=== PATIENT | male | born 1945 | race Caucasian/White ===

== ENCOUNTER 2021-10-02 10:35 | Inpatient (IN) | payer MEDICARE, OTHER ==
[~2021-10-02] VITALS: Ht 175.3 cm; Wt 56.2 kg
--- NOTE | 2021-10-02 10:52 | NUR ---
TO ER BED 4. BIB [facility] SEND BY PMD FOR POOR PO INTAKE WEIGHT LOSS AND WEAKNESS KATHY. PT CHANGED INTO GOWN. CONNECTED TO MONITOR. AWAITING MD CHAVEZ
[2021-10-02] MEDS ORDERED: ONDANSETRON HCL/PF 4 MG/2 ML VIAL IVP ONE (11:00)
[2021-10-02] MEDS ORDERED: IV NS 0.9% 1,000 ML BAG IV ONE (11:00)
--- NOTE | 2021-10-02 11:01 | NUR ---
XRAY AT BEDSIDE
[2021-10-02] MEDS ORDERED: ONDANSETRON HCL/PF 4 MG/2 ML VIAL ONE (11:27)
[2021-10-02 11:36] LABS: BASOPHILS % (AUTO) 0.2 % (0.0-2.0); EOSINOPHILS % (AUTO) 4.8 % (0.0-6.0); HEMATOCRIT 34 % (39-51); HEMOGLOBIN 11.4 g/dL (13.5-17.5); LYMPHOCYTES # (AUTO) 1.5 K/uL (0.8-4.8); LYMPHOCYTES % (AUTO) 25.3 % (20.0-44.0); MEAN CORPUSCULAR HGB CONC 33 g/dl (31.0-36.0); MEAN CORPUSCULAR VOLUME 95 fL (80-96); MONOCYTES # (AUTO) 0.5 K/uL (0.1-1.30); NEUTROPHILS # (AUTO) 3.7 K/uL (1.8-8.9); NEUTROPHILS % (AUTO) 60.7 % (43.0-81.0); PLATELET COUNT (AUTO) 106 K/uL (150-450); RED BLOOD CELL COUNT(AUTO) 3.59 MIL/uL (4.5-6.0)
--- NOTE | 2021-10-02 11:50 | NUR ---
MOVE SHEET SUBMITTED AND CALLED FOR MS BED.
--- NOTE | 2021-10-02 12:00 | NUR ---
COVID ANTIGEN SWAB COLLECTED AND SENT TO LAB
--- NOTE | 2021-10-02 12:45 | NUR ---
PT AMBULATED TO BATHROOM. STEADY GAIT NOTED
--- NOTE | 2021-10-02 13:16 | NUR ---
EPIC PAGED. AWAITING HOSPITALIST CALL BACK
[2021-10-02] MEDS ORDERED: CARB-37 PO (13:32)
[2021-10-02] MEDS ORDERED: CLOP75TA15 PO (13:32)
[2021-10-02] MEDS ORDERED: DONE5TAB34 PO (13:32)
[2021-10-02] MEDS ORDERED: CINA30TA2 PO (13:32)
[2021-10-02] MEDS ORDERED: MULT-439 PO (13:32)
[2021-10-02] MEDS ORDERED: SEVE800T28 PO (13:32)
[2021-10-02] MEDS ORDERED: ATOR20TA PO (13:32)
[2021-10-02] MEDS ORDERED: ASPI-1169 PO (13:32)
[2021-10-02] MEDS ORDERED: FAMO20TA8 PO (13:32)
[2021-10-02] MEDS ORDERED: LEVO112T5 PO (13:32)
[2021-10-02] MEDS ORDERED: ESCI10TA PO (13:32)
[2021-10-02] MEDS ORDERED: VENL75TA4 PO (13:32)
[2021-10-02] MEDS ORDERED: TAMS-12 PO (13:32)
[2021-10-02] MEDS ORDERED: CHOL500052 PO (13:32)
[2021-10-02] MEDS ORDERED: OMEP20TA5 PO (13:36)
[2021-10-02] MEDS ORDERED: EZET10TA15 PO (13:36)
[2021-10-02 14:21] LABS: ALANINE AMINOTRANSFERASE 22 U/L (12-78); ALBUMIN 3.7 g/dL (3.4-5.0); ALKALINE PHOSPHATASE 279 U/L (46-116); ASPARTATE AMINOTRANSFERASE 30 U/L (15-37); BILIRUBIN,DIRECT 0.1 mg/dL (0.0-0.2); BILIRUBIN,TOTAL 0.4 mg/dL (0.2-1.0); CALCIUM, SERUM 9.5 mg/dL (8.5-10.1); CARBON DIOXIDE 24 mmol/L (21-32); CHLORIDE 104 mmol/L (98-107); CREATININE 4.7 mg/dL (0.6-1.3); GLUCOSE 106 mg/dL (74-106); LIPASE 1014 U/L (73-393); SODIUM SERUM 142 mmol/L (136-145); TOTAL PROTEIN, SERUM 6.7 g/dL (6.4-8.2); UREA NITROGEN, BLOOD 63 mg/dL (7-18)
--- NOTE | 2021-10-02 14:39 | NUR ---
BED GIVEN 326-2
[2021-10-02] MEDS ORDERED: ACETAMINOPHEN 325 MG TABLET PO PRN (15:00)
[2021-10-02] MEDS ORDERED: ONDANSETRON HCL/PF 4 MG/2 ML VIAL IVP PRN (15:00)
[2021-10-02] MEDS ORDERED: Z GUARD REMEDY 4 OZ OINT TP PRN (15:00)
--- NOTE | 2021-10-02 15:05 | NUR ---
REPORT GIVEN TO RAMYA YARBROUGH ROOM 326
--- NOTE | 2021-10-02 15:10 | NUR ---
TRIAL JUDGE NOTE RECEIVED PATIENT FROM ER. PT WITH STABLE VITALS. A/O X 3 WITH CONFUSION AND FORGETFULNESS. NO SOB. BREATHING IS EVEN AND UNLABORED. NO ACUTE DISTRESS NOTED. NO C/O PAIN. IV ACCESS FRA#22 PATENT AND INTACT. ORIENTED PT TO UNIT, STAFF AND CALL LIGHT. SAFETY MEASURES IN PLACE WITH BED LOCKED AND LOW WITH SIDE RAILS X2. WILL CONTINUE MONITOR PT THROUGHOUT SHIFT.
[2021-10-02] MEDS: SEVELAMER CARBONATE 800 MG TABLET PO SCH (17:53)
--- NOTE | 2021-10-02 19:10 | NUR ---
RN opening notes Pt is watching TV comfortably. Pt is alert and orientedX2-3. On room air. No SOB. No S/s of distress noted. IV site at R wrist # 22 is clean, intact, flushes well and SL. Safety precautions is maintained. Bed at low position, brakes locked, side railsX3, hob elevated, bed alarm is on and call light is within reach. Will continue to monitor.
--- NOTE | 2021-10-02 19:33 | NUR ---
MS CLOSING NOTES PT RESTING IN BED. A/O X 3 WITH CONFUSION AND FORGETFULNESS. ALL NEEDS MET THROUGHOUT SHIFT. NO SIGNIFICANT CHANGES DURING SHFIT. NO SOB. BREATHING IS EVEN AND UNLABORED. NO ACUTE DISTRESS NOTED. NO C/O PAIN. IV ACCESS FRA#22 PATENT AND INTACT. ORIENTED PT TO UNIT, STAFF AND CALL LIGHT. SAFETY MEASURES IN PLACE WITH BED LOCKED AND LOW WITH SIDE RAILS X2. WILL ENDORSE CONTINUITY OF CARE TO ONCOMING SHIFT.
[2021-10-02 20:00] VITALS: BP 141/67
[2021-10-02] MEDS: CINACALCET HCL 30 MG TABLET PO SCH (21:26)
[2021-10-02] MEDS: DONEPEZIL 5 MG TABLET PO SCH (21:27)
[2021-10-02] MEDS: TAMSULOSIN 0.4 MG CAP.SR.24H PO SCH (21:27)
[2021-10-02] MEDS: HEPARIN SODIUM, PORCINE 5000 UNITS/1 ML VIAL SQ SCH (21:33)
--- NOTE | 2021-10-03 05:30 | NUR ---
RN notes Pt signed consent for HD.
--- NOTE | 2021-10-03 06:31 | NUR ---
RN closing notes Pt is resting in bed comfortably. Pt is alert and orientedX2-3. On room air. No SOB. No S/s of distress noted. VS is stable. IV site at R wrist # 22 is clean, intact, flushes well and SL. PELON fistula is intact and patent. routine meds were given as ordered. snacks is given and provided. Kept Pt clean, dry and comfortable. Safety precautions is maintained. Bed at low position, brakes locked, side railsX2, hob elevated, urinal at the bedside, bed alarm is on and call light is within reach. Will endorse to am nurse for LIN. Addendum: 10/03/21 at 0644 by MARIA ESTHER ADHIKARI RN PELON fistula thrill and bruit.
[2021-10-03 07:07] LABS: BASOPHILS % (AUTO) 0.3 % (0.0-2.0); HEMATOCRIT 30 % (39-51); LYMPHOCYTES # (AUTO) 1.8 K/uL (0.8-4.8); LYMPHOCYTES % (AUTO) 40.2 % (20.0-44.0); MEAN CORPUSCULAR HGB CONC 34 g/dl (31.0-36.0); MEAN CORPUSCULAR VOLUME 95 fL (80-96); MONOCYTES # (AUTO) 0.4 K/uL (0.1-1.30); MONOCYTES % (AUTO) 8.6 % (2.0-12.0); NEUTROPHILS # (AUTO) 1.9 K/uL (1.8-8.9); NEUTROPHILS % (AUTO) 42.9 % (43.0-81.0); PLATELET COUNT (AUTO) 97 K/uL (150-450); WHITE BLOOD COUNT (AUTO) 4.5 K/uL (4.3-11.0)
--- NOTE | 2021-10-03 07:30 | NUR ---
MS OPENING NOTES PT IS RESTING IN BED. A/O X3 FORGETFUL AT TIMES. BREATHING IS EVEN AND UNLABORED WITH NO S/SX OF RESPIRATORY DISTRESS NOTED. NO PAIN VERBALIZED AT THIS TIME. IV ACCESS R FA #22 PATENT AND INTACT. SAFETY MEASURES IN PLACE WITH BED LOCKED AND IN LOWEST POSITION WITH SIDE RAILS X2, CALL LIGHT WITHIN REACH. WILL CONTINUE TO MONITOR PATIENT
[2021-10-03 07:41] LABS: ALANINE AMINOTRANSFERASE 25 U/L (12-78); ALBUMIN 3.1 g/dL (3.4-5.0); ALKALINE PHOSPHATASE 241 U/L (46-116); ASPARTATE AMINOTRANSFERASE 20 U/L (15-37); BILIRUBIN,TOTAL 0.3 mg/dL (0.2-1.0); CALCIUM, SERUM 9.1 mg/dL (8.5-10.1); CARBON DIOXIDE 23 mmol/L (21-32); CHLORIDE 106 mmol/L (98-107); CREATININE 4.9 mg/dL (0.6-1.3); GLUCOSE 132 mg/dL (74-106); LIPASE 1293 U/L (73-393); MAGNESIUM 2.2 mg/dL (1.8-2.4); PHOSPHORUS 3.4 mg/dL (2.5-4.9); POTASSIUM 4.7 mmol/L (3.5-5.1); SODIUM SERUM 140 mmol/L (136-145); TOTAL PROTEIN, SERUM 5.6 g/dL (6.4-8.2); UREA NITROGEN, BLOOD 64 mg/dL (7-18)
[2021-10-03] MEDS: SEVELAMER CARBONATE 800 MG TABLET PO SCH ×3 (08:25→17:41)
[2021-10-03] MEDS: ASPIRIN 81 MG TAB.CHEW PO SCH (08:25)
[2021-10-03] MEDS: CARBIDOPA/LEVODOPA 25/250 MG 1 UDTAB PO SCH (08:25)
[2021-10-03] MEDS: VENLAFAXINE XR 150 MG CAP.SR.24H PO SCH (08:25)
[2021-10-03] MEDS: LEVOTHYROXINE SODIUM 137 MCG TABLET PO SCH (08:25)
[2021-10-03] MEDS: ESCITALOPRAM OXALATE (10 MG) 10 MG TABLET PO SCH (08:25)
[2021-10-03] MEDS: CLOPIDOGREL BISULFATE 75 MG TABLET PO SCH (08:25)
[2021-10-03] MEDS: EZETIMIBE 10 MG TABLET PO SCH (08:25)
[2021-10-03] MEDS: FAMOTIDINE (20 MG) 20 MG TABLET PO SCH (08:25)
[2021-10-03] MEDS: HEPARIN SODIUM, PORCINE 5000 UNITS/1 ML VIAL SQ SCH ×2 (08:29→21:32)
[2021-10-03 08:48] VITALS: BP 136/77
[2021-10-03 09:03] LABS: CHOLESTEROL 120 mg/dL (<200); HDL CHOLESTEROL 67 mg/dL (40-60); LDL 39 mg/dL (0-99); TRIGLYCERIDES 63 mg/dL (30-150)
[2021-10-03] MEDS ORDERED: NEPRO VAN 237 ML CAN PO PRN (10:00)
--- NOTE | 2021-10-03 12:30 | NUR ---
RN NOTES PATIENT HAD HD TODAY. TOLERATED WELL WITH NO ACUTE CHANGES. 1.5L OF FLUIDS REMOVED.
[2021-10-03 16:02] VITALS: BP 143/76
--- NOTE | 2021-10-03 18:59 | NUR ---
MS CLOSING NOTES PT IS RESTING IN BED. A/O X3 FORGETFUL AT TIMES. NO S/SX OF RESPIRATORY DISTRESS NOTED. NO PAIN VERBALIZED AT THIS TIME. IV ACCESS R FA #22 PATENT AND INTACT. HD WAS DONE TODAY WITH 1.5L REMOVED. NO COMPLICATIONS NOTED DURING DIALYSIS. PATIENT NEEDS ENCOURAGEMENT DURING MEALS AND IS PRETTY COOPERATIVE. ALL ORDERS CARRIED OUT AND NEEDS MET. SAFETY MEASURES IN PLACE WITH BED LOCKED AND IN LOWEST POSITION WITH SIDE RAILS X2, CALL LIGHT WITHIN REACH. WILL ENDORSE TO THE WINDOW INSTALLATION SUBCONTRACTOR NURSE FOR LIN
--- NOTE | 2021-10-03 19:25 | NUR ---
MS RN OPENING NOTES: RECEIVED REPORT AT PATIENT'S BEDSIDE. PATIENT IS ALERT AND ORIENTED X 3-4. FORGETFUL AT TIMES, EASY TO REORIENT. WATCHING TV. NAD AND STABLE AT THIS TIME. DENIES PAIN. AV SHUNT TO PELON -- POSITIVE THRILL AND BRUIT. IV ACCESS R FA #22 SL, FLUSHED, PATENT AND INTACT. NO INFILTRATION OR LEAKING OBSERVED. DRESSING CDI. DISCUSSED PLAN OF CARE WITH PATIENT TO INCREASE NUTRITIONAL INTAKE. PATIENT VERBALIZES UNDERSTANDING AND REPEATS BACK IMPORTANCE OF ADEQUATE NUTRITIONAL INTAKE FOR ORGAN FUNCTION AND OVERALL HEALTH. SAFETY MEASURES MAINTAINED -- BED IN LOW/LOCKED POSITION. SIDE RAILS UP X2. HOB IN SEMI-BROWN'S POSITION. PATIENT DEMONSTRATES ABILITY TO USE CALL LIGHT AND VERBALIZE NEEDS EFFECTIVELY. CALL LIGHT AND FREQUENTLY USED ITEMS WITHIN REACH.
[2021-10-03 20:00] VITALS: BP 154/76
[2021-10-03] MEDS: CINACALCET HCL 30 MG TABLET PO SCH (21:30)
[2021-10-03] MEDS: DONEPEZIL 5 MG TABLET PO SCH (21:30)
[2021-10-03] MEDS: TAMSULOSIN 0.4 MG CAP.SR.24H PO SCH (21:30)
[2021-10-04 04:00] VITALS: BP 150/70
--- NOTE | 2021-10-04 06:27 | NUR ---
PLANT UTILITIES ENGINEER NOTES: PATIENT LYING IN BED EYES CLOSED, RR EVEN AND UNLABORED. NAD AND STABLE. EASILY AROUSED BY VOICE COMMAND. ALERT AND ORIENTED TO BASELINE. FORGETFUL AT TIMES, EASY TO REORIENT. DENIES PAIN. AV SHUNT TO PELON -- POSITIVE THRILL AND BRUIT. IV ACCESS R FA #22 SL, FLUSHED, PATENT AND INTACT. NO INFILTRATION OR LEAKING OBSERVED. DRESSING CDI. DISCUSSED PLAN OF CARE WITH PATIENT TO INCREASE NUTRITIONAL INTAKE. PATIENT VERBALIZES UNDERSTANDING AND REPEATS BACK IMPORTANCE OF ADEQUATE NUTRITIONAL INTAKE FOR ORGAN FUNCTION AND OVERALL HEALTH. SAFETY AND ASPIRATION PRECAUTIONS MAINTAINED THROUGHOUT THE SHIFT. HOB ELEVATED TO SEMI-BROWN'S POSITION. BED LOW/LOCKED. SIDE RAILS UP X2. PATIENT DEMONSTRATES ABILITY TO USE CALL LIGHT AND VERBALIZE NEEDS EFFECTIVELY. CALL LIGHT AND FREQUENTLY USED ITEMS WITHIN REACH.
[2021-10-04] MEDS: LEVOTHYROXINE SODIUM 137 MCG TABLET PO SCH (06:32)
[2021-10-04 06:38] LABS: BASOPHILS % (AUTO) 0.4 % (0.0-2.0); EOSINOPHILS % (AUTO) 7.1 % (0.0-6.0); HEMATOCRIT 31 % (39-51); HEMOGLOBIN 10.5 g/dL (13.5-17.5); LYMPHOCYTES # (AUTO) 2.1 K/uL (0.8-4.8); LYMPHOCYTES % (AUTO) 41.4 % (20.0-44.0); MEAN CORPUSCULAR HGB CONC 34 g/dl (31.0-36.0); MEAN CORPUSCULAR VOLUME 95 fL (80-96); MONOCYTES # (AUTO) 0.6 K/uL (0.1-1.30); NEUTROPHILS # (AUTO) 2.1 K/uL (1.8-8.9); NEUTROPHILS % (AUTO) 40.1 % (43.0-81.0); PLATELET COUNT (AUTO) 106 K/uL (150-450); RED BLOOD CELL COUNT(AUTO) 3.31 MIL/uL (4.5-6.0); WHITE BLOOD COUNT (AUTO) 5.2 K/uL (4.3-11.0)
[2021-10-04 07:00] LABS: CALCIUM, SERUM 9.7 mg/dL (8.5-10.1); CARBON DIOXIDE 29 mmol/L (21-32); CHLORIDE 103 mmol/L (98-107); CREATININE 3.6 mg/dL (0.6-1.3); GLUCOSE 79 mg/dL (74-106); LIPASE 129 U/L (73-393); MAGNESIUM 2.3 mg/dL (1.8-2.4); PHOSPHORUS 3.3 mg/dL (2.5-4.9); POTASSIUM 4.4 mmol/L (3.5-5.1); SODIUM SERUM 138 mmol/L (136-145); UREA NITROGEN, BLOOD 36 mg/dL (7-18)
--- NOTE | 2021-10-04 07:30 | NUR ---
HOSPITAL SUPERVISOR OPENING NOTES PATIENT LYING IN BED EYES CLOSED, ABLE TO BE WAKEN. EVEN CHEST EXPANSION DURING INSPIRATION AND EXPIRATION WITH NO S/SX OF RESPIRATORY DISTRESS. A/O X3, FORGETFUL AT TIMES. DENIES PAIN AT THIS TIME. AV SHUNT TO PELON, POSITIVE THRILL AND BRUIT NOTED. IV ACCESS R FA #22 SL, FLUSHED, PATENT AND INTACT. WILL CONTINUE ENCOURAGING NUTRITION SUPPLEMENTATION FOR OVERALL HEALTH. SAFETY AND ASPIRATION PRECAUTIONS IN PLACE. HOB ELEVATED TO SEMI-BROWN'S POSITION. BED LOW/LOCKED, SIDE RAILS UP X2, CALL LIGHT WITHIN REACH. PATIENT DEMONSTRATES ABILITY TO USE CALL LIGHT AND VERBALIZE NEEDS EFFECTIVELY. WILL CONTINUE PLAN OF CARE
[2021-10-04 08:00] VITALS: BP 151/74
[2021-10-04] MEDS: ASPIRIN 81 MG TAB.CHEW PO SCH (08:45)
[2021-10-04] MEDS: CARBIDOPA/LEVODOPA 25/250 MG 1 UDTAB PO SCH (08:45)
[2021-10-04] MEDS: SEVELAMER CARBONATE 800 MG TABLET PO SCH ×3 (08:45→18:21)
[2021-10-04] MEDS: VENLAFAXINE XR 150 MG CAP.SR.24H PO SCH (08:45)
[2021-10-04] MEDS: CLOPIDOGREL BISULFATE 75 MG TABLET PO SCH (08:45)
[2021-10-04] MEDS: ESCITALOPRAM OXALATE (10 MG) 10 MG TABLET PO SCH (08:45)
[2021-10-04] MEDS: FAMOTIDINE (20 MG) 20 MG TABLET PO SCH (08:45)
[2021-10-04] MEDS: EZETIMIBE 10 MG TABLET PO SCH (08:45)
[2021-10-04] MEDS: HEPARIN SODIUM, PORCINE 5000 UNITS/1 ML VIAL SQ SCH ×2 (08:47→21:15)
[2021-10-04 12:00] VITALS: BP 135/72
--- NOTE | 2021-10-04 12:30 | NUR ---
RN NOTES PATIENT IS ENCOURAGED TO DRINK NEPRO DRINKS WITH MEALS FOR SUPPLEMENTAL NUTRITION. PATIENT IS OKAY WITH DRINKING NEPRO BUT STATES, "IM TIRED OF DRINKING VANILLA FLAVORED NEPRO". PER PATIENT REQUEST HE WOULD LIKE EITHER CHOCOLATE OR STRAWBERRY FLAVOR. WILL ENDORSE ACCORDINGLY FOR PATIENTS NEED.
[2021-10-04] MEDS ORDERED: NEPRO VAN 237 ML CAN PO PRN (13:30)
[2021-10-04 16:00] VITALS: BP 137/72
--- NOTE | 2021-10-04 18:53 | NUR ---
WELDING MACHINE OPERATOR ELECTROSLAG CLOSING NOTES PATIENT IN BED, AWAKE, A/O X3 FORGETFUL AT TIMES. NO S/SX OF RESPIRATORY DISTRESS. DENIES PAIN AT THIS TIME. AV SHUNT TO PELON, POSITIVE THRILL AND BRUIT NOTED. IV ACCESS R FA #22 SL, FLUSHED, PATENT AND INTACT. TELE MONITOR READING SR 69 AT THIS TIME. PATIENT AVERAGED 50% INTAKE OF ALL MEALS TODAY. CONTINUING TO ENCOURAGE NUTRITIONAL INTAKE. SAFETY AND ASPIRATION PRECAUTIONS IN PLACE. HOB ELEVATED TO SEMI-BROWN'S POSITION. BED LOW/LOCKED, SIDE RAILS UP X2, CALL LIGHT WITHIN REACH. WILL ENDORSE TO GHOST WRITER NURSE FOR LIN
--- NOTE | 2021-10-04 19:43 | NUR ---
RN OPENING NOTES RECEIVED PT IN BED, AWAKE. AOx3, ABLE TO MAKE NEEDS KNOWN. ON RA AND TOLERATING WELL. NO SOB NOTED. NO S/SX OF RESPIRATORY DISTRESS NOTED. IV ACCESS IN L WRIST #22 AND PELON AV FISTULA. IV IS INTACT, PATENT, AND FLUSHING WELL. TELE MONITOR DETECTS SINUS RHYTHM WITH RATE OF 63. SAFETY PRECAUTIONS IN PLACE: BED IN LOWEST, LOCKED POSITION, SIDERAILS UPx2, AND BRAKES ON. TABLE AND CALL LIGHT WITHIN REACH. WILL CONTINUE TO MONITOR.
[2021-10-04 20:00] VITALS: BP 149/73
[2021-10-04] MEDS: DONEPEZIL 5 MG TABLET PO SCH (21:14)
[2021-10-04] MEDS: CINACALCET HCL 30 MG TABLET PO SCH (21:14)
[2021-10-04] MEDS: TAMSULOSIN 0.4 MG CAP.SR.24H PO SCH (21:14)
[2021-10-05] VITALS: BP 162/77
[2021-10-05 04:00] VITALS: BP 123/70
[2021-10-05 06:11] LABS: BASOPHILS % (AUTO) 0.4 % (0.0-2.0); EOSINOPHILS % (AUTO) 6.9 % (0.0-6.0); HEMATOCRIT 34 % (39-51); HEMOGLOBIN 11.2 g/dL (13.5-17.5); LYMPHOCYTES # (AUTO) 2.2 K/uL (0.8-4.8); LYMPHOCYTES % (AUTO) 45.9 % (20.0-44.0); MEAN CORPUSCULAR HGB CONC 33 g/dl (31.0-36.0); MEAN CORPUSCULAR VOLUME 95 fL (80-96); MONOCYTES # (AUTO) 0.5 K/uL (0.1-1.30); MONOCYTES % (AUTO) 10.6 % (2.0-12.0); NEUTROPHILS # (AUTO) 1.7 K/uL (1.8-8.9); NEUTROPHILS % (AUTO) 36.2 % (43.0-81.0); PLATELET COUNT (AUTO) 114 K/uL (150-450); RED BLOOD CELL COUNT(AUTO) 3.51 MIL/uL (4.5-6.0); WHITE BLOOD COUNT (AUTO) 4.8 K/uL (4.3-11.0)
--- NOTE | 2021-10-05 06:47 | NUR ---
RN CLOSING NOTES PT IN BED, ASLEEP, AWAKENS TO VERBAL STIMULI. AOx3, ABLE TO MAKE NEEDS KNOWN. ON RA AND TOLERATING WELL. NO SOB NOTED. NO S/SX OF RESPIRATORY DISTRESS NOTED. IV ACCESS IN L WRIST #22 AND PELON AV FISTULA. IV IS INTACT, PATENT, AND FLUSHING WELL. TELE MONITOR DETECTS SINUS RHYTHM WITH RATE OF 63. ALL NEEDS MET. PT KEPT CLEAN AND DRY. SAFETY PRECAUTIONS IN PLACE: BED IN LOWEST, LOCKED POSITION, SIDERAILS UPx2, AND BRAKES ON. TABLE AND CALL LIGHT WITHIN REACH. WILL ENDORSE TO ONCOMING SHIFT FOR LIN.
[2021-10-05 07:22] LABS: ALANINE AMINOTRANSFERASE 19 U/L (12-78); ALBUMIN 3.2 g/dL (3.4-5.0); ALKALINE PHOSPHATASE 256 U/L (46-116); ASPARTATE AMINOTRANSFERASE 18 U/L (15-37); BILIRUBIN,TOTAL 0.3 mg/dL (0.2-1.0); CALCIUM, SERUM 9.7 mg/dL (8.5-10.1); CARBON DIOXIDE 28 mmol/L (21-32); CHLORIDE 101 mmol/L (98-107); CREATININE 4.5 mg/dL (0.6-1.3); GLUCOSE 73 mg/dL (74-106); LIPASE 427 U/L (73-393); MAGNESIUM 2.3 mg/dL (1.8-2.4); PHOSPHORUS 3.3 mg/dL (2.5-4.9); POTASSIUM 4.9 mmol/L (3.5-5.1); SODIUM SERUM 134 mmol/L (136-145); TOTAL PROTEIN, SERUM 5.9 g/dL (6.4-8.2); UREA NITROGEN, BLOOD 51 mg/dL (7-18)
--- NOTE | 2021-10-05 07:54 | NUR ---
TELE OPENING NOTES PT IS IN BED ASLEEP, EASY TO AROUSE. A/O X 3 WITH CONFUSION AND FORGETFULNESS. NO S/SX OF ACUTE DISTRESS NOTED. NO SOB. BREATHING IS EVEN AND UNLABORED. NO C/O PAIN. IV ACCESS RWIST#22 PATENT AND INTACT. PT WITH PELON AV FISTULA POSITIVE FOR THRILL AND BRUIT. SAFETY MEASURES IN PLACE WITH BED LOCKED AND LOW WITH SIDE RAILS X2. CALL LIGHT IS WITHIN REACH. WILL CONTINUE TO MONITOR PATIENT THROUGHOUT SHIFT.
[2021-10-05 08:00] VITALS: BP 115/69
[2021-10-05] MEDS: SEVELAMER CARBONATE 800 MG TABLET PO SCH ×3 (08:09→17:08)
[2021-10-05] MEDS: LEVOTHYROXINE SODIUM 137 MCG TABLET PO SCH (08:09)
[2021-10-05] MEDS: VENLAFAXINE XR 150 MG CAP.SR.24H PO SCH (08:26)
[2021-10-05] MEDS: ASPIRIN 81 MG TAB.CHEW PO SCH (08:26)
[2021-10-05] MEDS: CLOPIDOGREL BISULFATE 75 MG TABLET PO SCH (08:26)
[2021-10-05] MEDS: CARBIDOPA/LEVODOPA 25/250 MG 1 UDTAB PO SCH (08:26)
[2021-10-05] MEDS: FAMOTIDINE (20 MG) 20 MG TABLET PO SCH (08:26)
[2021-10-05] MEDS: ESCITALOPRAM OXALATE (10 MG) 10 MG TABLET PO SCH (08:26)
[2021-10-05] MEDS: EZETIMIBE 10 MG TABLET PO SCH (08:26)
[2021-10-05] MEDS: HEPARIN SODIUM, PORCINE 5000 UNITS/1 ML VIAL SQ SCH ×2 (08:27→21:29)
[2021-10-05] MEDS ORDERED: POLYETHYLENE GLYCOL 3350 17 GM POWD.PACK PO ONE (11:30)
[2021-10-05] MEDS ORDERED: BISACODYL SUPP (10 MG) 10 MG/SUPP.RECT SUPP.RECT RC PRN (11:30)
[2021-10-05] MEDS ORDERED: MINERAL OIL 133 ML (PYXIS) 1 EA ENEMA RC PRN (11:30)
[2021-10-05 12:00] VITALS: BP 122/66
[2021-10-05 16:00] VITALS: BP 137/72
--- NOTE | 2021-10-05 18:46 | NUR ---
TELE CLOSING NOTES PT IS AWAKE IN BED. NO S/SX OF ACUTE DISTRESS NOTED. NO SOB. BREATHING IS EVEN AND UNLABORED. NO C/O PAIN. IV ACCESS RWIST#22 PATENT AND INTACT, FLUSHING WELL. PT WITH PELON AV FISTULA POSITIVE FOR THRILL AND BRUIT. SAFETY MEASURES IN PLACE WITH BED LOCKED LOW WITH SIDE RAILS X2. CALL LIGHT IS WITHIN REACH. ALL NEEDS MET THROUGHOUT SHIFT. WILL ENDORSE CONTINUITY OF CARE TO ONCOMING SHIFT.
--- NOTE | 2021-10-05 19:30 | NUR ---
RN OPENING NOTE PATIENT IN BED, AWAKE. PATIENT ABLE TO MAKE NEEDS KNOWN, A/O X 4. PATIENT ON RA, TOLERATING WELL WITH 97% O2 SATURATION. PATIENT DOES NOT COMPLAIN OF ANY PAIN AT THIS TIME. TELE MONITOR READS SR 61 BPM. PATIENT FOR HIDA SCAN IN AM. R WRIST 22 G PATIENT AND INTACT, SL AT THIS TIME. SAFETY MEASURES IN PLACE: BED LOCKED AND IN LOWEST POSITION, CALL LIGHT WITHIN REACH, SIDE RAILS UP. WILL MONITOR PATIENT CLOSELY.
[2021-10-05 20:00] VITALS: BP 142/67
[2021-10-05] MEDS: DONEPEZIL 5 MG TABLET PO SCH (21:24)
[2021-10-05] MEDS: TAMSULOSIN 0.4 MG CAP.SR.24H PO SCH (21:24)
[2021-10-05] MEDS: CINACALCET HCL 30 MG TABLET PO SCH (21:24)
[2021-10-06] VITALS: BP 141/78
[2021-10-06 04:00] VITALS: BP 136/75
--- NOTE | 2021-10-06 06:55 | NUR ---
RN CLOSING NOTE PATIENT IN BED, SLEEPING, EASILY AWAKENED. PATIENT ABLE TO MAKE NEEDS KNOWN, A/O X 4. PATIENT ON RA, TOLERATING WELL WITH 96% O2 SATURATION. PATIENT DOES NOT COMPLAIN OF ANY PAIN AT THIS TIME. TELE MONITOR READS SR 63 BPM. PATIENT FOR HIDA SCAN, NPO AT THIS TIME. R WRIST 22 G PATIENT AND INTACT, SL AT THIS TIME. SAFETY MEASURES IN PLACE: BED LOCKED AND IN LOWEST POSITION, CALL LIGHT WITHIN REACH, SIDE RAILS UP. ALL NEEDS MET AND ATTENDED. ALL ORDERS CARRIED OUT. WILL ENDORSE TO DAY SHIFT NURSE FOR LIN.
[2021-10-06 07:23] LABS: BASOPHILS % (AUTO) 0.4 % (0.0-2.0); EOSINOPHILS % (AUTO) 5.1 % (0.0-6.0); HEMATOCRIT 36 % (39-51); HEMOGLOBIN 11.9 g/dL (13.5-17.5); LYMPHOCYTES # (AUTO) 1.6 K/uL (0.8-4.8); LYMPHOCYTES % (AUTO) 37.1 % (20.0-44.0); MEAN CORPUSCULAR HGB CONC 33 g/dl (31.0-36.0); MEAN CORPUSCULAR VOLUME 95 fL (80-96); MONOCYTES # (AUTO) 0.4 K/uL (0.1-1.30); MONOCYTES % (AUTO) 9.5 % (2.0-12.0); NEUTROPHILS # (AUTO) 2.1 K/uL (1.8-8.9); NEUTROPHILS % (AUTO) 47.9 % (43.0-81.0); PLATELET COUNT (AUTO) 112 K/uL (150-450); RED BLOOD CELL COUNT(AUTO) 3.76 MIL/uL (4.5-6.0); WHITE BLOOD COUNT (AUTO) 4.4 K/uL (4.3-11.0)
[2021-10-06] MEDS: LEVOTHYROXINE SODIUM 137 MCG TABLET PO SCH (07:30)
--- NOTE | 2021-10-06 07:30 | NUR ---
TELE OPENING NOTES PT IS IN BED ASLEEP, EASY TO AROUSE. A/O X 3. NO S/SX OF ACUTE DISTRESS NOTED. NO SOB. BREATHING IS EVEN AND UNLABORED, TOLERATING WELL ON ROOM AIR. NO C/O PAIN. IV ACCESS RWIST#22 PATENT AND INTACT. PT WITH PELON AV FISTULA. SAFETY MEASURES IN PLACE WITH BED LOCKED AND LOW WITH SIDE RAILS X2. CALL LIGHT IS WITHIN REACH. WILL CONTINUE TO MONITOR PATIENT THROUGHOUT SHIFT.
[2021-10-06 07:37] LABS: ALANINE AMINOTRANSFERASE 20 U/L (12-78); ALBUMIN 3.6 g/dL (3.4-5.0); ALKALINE PHOSPHATASE 286 U/L (46-116); ASPARTATE AMINOTRANSFERASE 19 U/L (15-37); BILIRUBIN,TOTAL 0.3 mg/dL (0.2-1.0); CARBON DIOXIDE 24 mmol/L (21-32); CHLORIDE 104 mmol/L (98-107); CREATININE 5.3 mg/dL (0.6-1.3); GLUCOSE 79 mg/dL (74-106); LIPASE 716 U/L (73-393); MAGNESIUM 2.7 mg/dL (1.8-2.4); PHOSPHORUS 3.2 mg/dL (2.5-4.9); POTASSIUM 5.1 mmol/L (3.5-5.1); SODIUM SERUM 137 mmol/L (136-145); TOTAL PROTEIN, SERUM 6.5 g/dL (6.4-8.2); UREA NITROGEN, BLOOD 64 mg/dL (7-18)
[2021-10-06 08:00] VITALS: BP 149/75
[2021-10-06] MEDS: SEVELAMER CARBONATE 800 MG TABLET PO SCH ×3 (08:00→17:33)
[2021-10-06] MEDS: VENLAFAXINE XR 150 MG CAP.SR.24H PO SCH (08:05)
[2021-10-06] MEDS: ESCITALOPRAM OXALATE (10 MG) 10 MG TABLET PO SCH (08:05)
[2021-10-06] MEDS: ASPIRIN 81 MG TAB.CHEW PO SCH (08:05)
[2021-10-06] MEDS: CLOPIDOGREL BISULFATE 75 MG TABLET PO SCH (08:06)
[2021-10-06] MEDS: HEPARIN SODIUM, PORCINE 5000 UNITS/1 ML VIAL SQ SCH (08:06)
[2021-10-06] MEDS: FAMOTIDINE (20 MG) 20 MG TABLET PO SCH (08:06)
[2021-10-06] MEDS: CARBIDOPA/LEVODOPA 25/250 MG 1 UDTAB PO SCH (08:06)
[2021-10-06] MEDS: EZETIMIBE 10 MG TABLET PO SCH (08:06)
[2021-10-06 08:10] LABS: CALCIUM, SERUM 9.6 mg/dL (8.5-10.1)
--- NOTE | 2021-10-06 11:00 | NUR ---
ANNEALING OPERATOR NOTE GAVE REPORT TO LINNEA MCCARTY FOR CONTINUITY OF CARE.
--- NOTE | 2021-10-06 12:43 | NUR ---
NM; HIDA SCAN WAS COMPLETED;TECH;RB
[2021-10-06 12:45] VITALS: BP 130/73
--- NOTE | 2021-10-06 15:36 | NUR ---
RN NOTES PT IS IN BED RESTING , EASY TO AROUSE. A/O X 3. NO S/SX OF ACUTE DISTRESS NOTED. NO SOB. BREATHING IS EVEN AND UNLABORED, TOLERATING WELL ON ROOM AIR. DIALYSIS PERFORMED REMOVED 2 LITERS, NO COMPLICATIONS NOTED DURING PROCEDURE, NO C/O PAIN. IV ACCESS RWIST#22 PATENT AND INTACT. PELON AV FISTULA IS INTACT, SAFETY MEASURES IN PLACE WITH BED LOCKED AND LOW WITH SIDE RAILS X2, CALL LIGHT WITHIN REACH.
[2021-10-06 16:00] VITALS: BP_SYST 126; BP_SYST 129; BP_DIAS 70; BP_DIAS 75
--- NOTE | 2021-10-06 18:34 | NUR ---
RN NOTES WEIGHTER CALLED NOTIFIED PT WOULD BE MOVED TO [facility] FOR CARE TO MEET NEEDS, [facility] 2 TEAM C, MIGUE ARRIVED AT 1800 TO HOME OFFICE CLAIMS EXAMINER PT AND TRANSFER TO SNF, PHONE # [phone] LEFT REPORT WITH NURSE ON DUTY FEMALE SAID SHIFT CHANGE WILL GIVE REPORT INFO AND DOCUMENTS TO ONCOMING DENSITOMETER READER, DIALYSIS COMPLETED TODAY REMOVED 2 LITERS NO ADVERSE SIDE EFFECTS NOR REACTIONS NOTED, SAFE TRANSFER FROM BED TO [facility] TO OUTSIDE DOORS , TO AMBULANCE
--- NOTE | 2021-10-06 19:32 | NUR ---
RN NOTES TELE - MONITOR WAS TAKEN OFF OF PATIENT AND AT BED SIDE IN ROOM, SOME HOW PT TOOK TELE - MONITOR AND HAD IT IN HIS POCKET MYSELF RN DID NOT NOTICE AND PARAMEDICS DID NOT NOTICE, RICCO JACKSON CONTACTED TELE - MONITOR IS THERE AT FACILITY WHICH IS LOCATED AT [address] [place] [address] PHONE # IS [phone], [facility] CONTACTED ASKED FOR Jennifer CAMARENA, WILL AUDIT MGR DEVICE AND BRING BACK TO HOSPITAL WITH IN 24 HOUR TIME PERIOD OR LESS. [facility] [phone] FAX [phone]
== END 2021-10-06 18:38 | DRG 640 ==
LOC: ER 10:50 → MED 14:56 → TELE 10-04 05:12
PROVIDERS: ADMIT Hospitalist; ATTEND Hospitalist
PROC: 5A1D70Z Performance of Urinary Filtration, Intermittent, Less than 6 Hours Per Day (ICD-10-PCS; principal; 2021-10-03)
DX: R62.7 Adult failure to thrive (principal); N18.6 End stage renal disease; K85.90 Acute pancreatitis without necrosis or infection, unspecified; I12.0 Hypertensive chronic kidney disease with stage 5 chronic kidney disease or end stage renal disease; Z68.1 Body mass index [BMI] 19.9 or less, adult; E44.0 Moderate protein-calorie malnutrition; E78.5 Hyperlipidemia, unspecified; Z20.822 Contact with and (suspected) exposure to COVID-19; Z88.5 Allergy status to narcotic agent; Z88.2 Allergy status to sulfonamides; Z88.8 Allergy status to other drugs, medicaments and biological substances; Z99.2 Dependence on renal dialysis; Z79.899 Other long term (current) drug therapy; Z99.3 Dependence on wheelchair; D69.6 Thrombocytopenia, unspecified; F02.80 Dementia in other diseases classified elsewhere, unspecified severity, without behavioral disturbance, psychotic disturbance, mood disturbance, and anxiety; G20 Parkinson's disease; D63.1 Anemia in chronic kidney disease; F32.A Depression, unspecified; E03.9 Hypothyroidism, unspecified; E88.09 Other disorders of plasma-protein metabolism, not elsewhere classified; I71.4 Abdominal aortic aneurysm, without rupture; K82.8 Other specified diseases of gallbladder; M89.9 Disorder of bone, unspecified; N40.0 Benign prostatic hyperplasia without lower urinary tract symptoms; R91.8 Other nonspecific abnormal finding of lung field
CPT/HCPCS: 36415; 71045-TC; 76705-TC; 78226; 80048-TC; 80053-TC; 80061-TC; 80076-TC; 83690-TC; 83735-TC; 84100-TC; 84439-TC; 84443-TC; 85025-TC; 86706; 87081-TC; 87340; 90935-TC; 97112-TC; 97116-TC; 97530-TC; A9537; C9803; G0378; J1644; J2405